=== PATIENT | female | born 1965 | race Caucasian/White ===

== ENCOUNTER 2019-01-08 06:56 | Day surgery (SDC) | payer BC ==
[2019-01-08] MEDS ORDERED: Dextrose 5%-Lactated Ringers 1,000 ML IV SCH (07:30)
[2019-01-08] MEDS ORDERED: Glycopyrrolate 0.2 MG/ML 2 ML SDV IVPUSH ONE (07:30)
[2019-01-08] MEDS ORDERED: Midazolam 1 MG/ML 2 ML SDV ONE (07:55)
[2019-01-08] MEDS ORDERED: fentaNYL 100 MCG/2 ML SDV ONE (07:55)
[2019-01-08] MEDS ORDERED: Propofol 200 MG/20 ML SDV ONE ×2 (07:55→10:32)
[2019-01-08 11:27] VITALS: BP 132/78; PULSE 78
--- NOTE | 2019-01-12 11:54 | OR ---
DATE OF PROCEDURE: 01/08/2019 SURGEON: Zeferino Grider MD PREOPERATIVE DIAGNOSES: 1. History of Bravo's esophagus. 2. Family history of colon carcinoma. POSTOPERATIVE DIAGNOSES: 1. History of Bravo's esophagus with no gross inflammation at esophagogastric junction. 2. Family history of colon carcinoma with normal colonoscopic examination. OPERATIVE PROCEDURES: 1. Upper GI endoscopy with biopsies of esophagogastric junction for histologic evaluation. 2. Flexible colonoscopy. ANESTHESIA: IV sedation. INDICATION FOR PROCEDURE: A 53-year-old female with known history of Bravo's esophagus, presenting for a followup endoscopy. Presently, she is on proton pump inhibitor treatment. She is status post previous Carla-en-Y gastric bypass. She also has a family history of colon carcinoma and is in a 5-year interval program for screening colonoscopy. Potential risks of the procedure including bleeding and perforation were discussed, and the patient wishes to proceed. DETAILS OF PROCEDURE: The patient was taken to the operating room and placed in a left lateral decubitus position. IV sedation was administered, after which the upper GI endoscope was passed orally through the length of the esophagus into the gastric pouch, from there through the gastrojejunostomy roughly 20 cm into the Carla limb. Overall, this exam was entirely normal. There were no areas of significant mucosal inflammation. There was some slight upward extension of the gastroesophageal junction mucosal line of the gastric folds consistent with Bravo's esophagus, but otherwise no significant inflammation was noted at that level. No bile or other problems were noted in the Carla limb. At this point, multiple biopsies were obtained from the area of the columnar mucosa and above the upper gastric folds and sent for histologic evaluation. Minimal bleeding from the biopsy sites was seen and the procedure was then concluded. Attention was then taken to the colonoscopy. Initial digital rectal exam performed was unremarkable. Colonoscope was then passed into the rectum with retroflexion revealing uncomplicated hemorrhoidal columns. The scope was eventually passed to the cecum. The prep was just fair. There was a fair bit of liquid stool present, but over 95% of the mucosal surfaces were all well visualized. To that level, no abnormalities were noted, particularly no diverticula, no areas of polyps or other signs of neoplasia or evidence of colitis. The scope was then withdrawn and the procedure then concluded. The patient was taken to the recovery room in satisfactory condition. The recommendation would be to continue with present medical management with regard to the proton pump inhibitor therapy. She should have repeat upper endoscopy in 2 years, assuming that today's biopsies do not show any progression toward dysplasia within the Bravo's esophagus, and she should have another colonoscopy in 5 years. The patient did bring up the idea of whether or not there is something that can be done with regard to the Bravo's esophagus, as far as anti-reflux procedures. In fact, the Carla-en-Y gastric bypass diverts essentially all the acid and bile away from the area of the esophagogastric junction with only small amount of acid exposure related to the small gastric pouch present, which in her case is roughly the size of a ping-pong ball, so any additional procedures, as far as anti-reflux procedure, would not be appropriate or add to the present treatment. Zeferino Grider MD /[id number]
== END 2019-01-08 11:35 | disposition home or self-care (01) ==
LOC: JP.SDS 06:56
PROVIDERS: ATTEND Surgery
DX: Z12.11 Encounter for screening for malignant neoplasm of colon (principal); K64.9 Unspecified hemorrhoids; K22.70 Barrett's esophagus without dysplasia; K21.9 Gastro-esophageal reflux disease without esophagitis; I10 Essential (primary) hypertension; G47.30 Sleep apnea, unspecified; Z88.5 Allergy status to narcotic agent; Z88.8 Allergy status to other drugs, medicaments and biological substances; Z98.84 Bariatric surgery status; Z80.0 Family history of malignant neoplasm of digestive organs; Z79.899 Other long term (current) drug therapy
CPT/HCPCS: 43239; 45378; J2250; J2704; J3010; J3490; J7042

== ENCOUNTER 2021-02-10 07:41 | Day surgery (SDC) | payer BC ==
[2021-02-10] MEDS ORDERED: Dextrose 5%-Lactated Ringers 1,000 ML IV SCH (08:00)
[2021-02-10] MEDS ORDERED: Lactated Ringers 1,000 ML IV SCH (08:00)
[2021-02-10] MEDS ORDERED: Glycopyrrolate 0.2 MG/ML 2 ML SDV IVPUSH ONE (09:30)
[2021-02-10] MEDS ORDERED: Ondansetron 4 MG/2 ML SDV ONE (09:57)
[2021-02-10] MEDS ORDERED: Propofol 200 MG/20 ML SDV ONE (09:57)
[2021-02-10] MEDS ORDERED: Midazolam 1 MG/ML 2 ML SDV ONE (10:16)
[2021-02-10 12:23] VITALS: BP 140/70; PULSE 70
--- NOTE | 2021-02-13 07:42 | OR ---
DATE OF PROCEDURE: 02/10/2021 SURGEON: Zeferino Grider MD PREOPERATIVE DIAGNOSIS: History of Bravo's esophagus. POSTOPERATIVE DIAGNOSIS: History of Bravo's esophagus with minimal inflammation at esophagogastric junction. OPERATIVE PROCEDURE: Upper GI endoscopy with biopsies of esophagogastric junction. ANESTHESIA: IV sedation. INDICATION FOR PROCEDURE: This is a 55-year-old status post Carla-en-Y gastric bypass with known history of Bravo's esophagus. She is referred for a followup upper endoscopy. At present, she is on Nexium 20 mg a day, but she is receiving a generic form of the Nexium and does not feel this one works as well as the name brand and the plan is to proceed with upper GI endoscopy with biopsies of area of the Bravo's esophagus for surveillance of the Bravo's esophagus. Potential risks including bleeding and perforation were discussed, and the patient wishes to proceed. DETAILS OF PROCEDURE: The patient was taken to the operating room and placed in a left lateral decubitus position. IV sedation was administered after which the upper GI endoscope was passed orally through the length of the esophagus into the gastric pouch, through the gastrojejunostomy roughly 20 cm into the Carla limb. Overall, there was at most very minimal inflammation at esophagogastric junction. There was some upward extension of the columnar mucosa consistent with history of Bravo's esophagus, but again this was minimally if at all inflamed. Remainder of the examination was entirely normal. At this point, biopsies were obtained from the esophagogastric junction and sent for histologic evaluation. Minimal bleeding from the biopsy sites was seen and the procedure was then concluded. The patient was taken to the recovery room in satisfactory condition. Based on the findings, it appears that the present medical management is controlling the inflammation at the EG junction satisfactorily. Assuming that the current biopsies do not show a progression towards dysplasia within the Bravo's esophagus, the next upper endoscopy should be in a 2-year range. Zeferino Grider MD /[id number]
== END 2021-02-10 11:50 | disposition home or self-care (01) ==
LOC: JP.SDS 07:41
PROVIDERS: ATTEND Surgery
DX: K22.70 Barrett's esophagus without dysplasia (principal); K20.90 Esophagitis, unspecified without bleeding; K31.A0 Gastric intestinal metaplasia, unspecified; I10 Essential (primary) hypertension; Z88.8 Allergy status to other drugs, medicaments and biological substances; Z98.84 Bariatric surgery status; Z87.891 Personal history of nicotine dependence; Z79.899 Other long term (current) drug therapy
CPT/HCPCS: 43239; J2250; J2405; J2704; J3490; J7121